=== PATIENT | female | born 1955 | race Caucasian/White ===

== ENCOUNTER 2022-06-20 06:45 | Inpatient (IN) | payer MEDICARE, BC, SELFPAY ==
--- NOTE | ~2022-06-20 | CT_ITS ---
EXAMINATION: CT HEAD WITHOUT CONTRAST CLINICAL INFORMATION: Altered mental status COMPARISON: None available. TECHNIQUE: Contiguous axial imaging was performed from the skull base to vertex without intravenous administration of contrast. This CT examination was performed using dose optimization techniques as appropriate, variously including the following: *Automated exposure control *Adjustment of mA and/or kV according to patient size (this includes techniques or standardized protocols for targeted exams where dose is matched to indication/reason for exam; i.e. extremities or head) *Use of iterative reconstruction technique DLP: 534 mGy-cm FINDINGS: There is no evidence of acute intracranial hemorrhage or territorial infarction. No abnormal mass effect or midline shift is appreciated. Veronica-white differentiation is well preserved. No extra-axial fluid collections. The ventricular system and cortical sulci are normal in size. The osseous structures and soft tissues are normal. The visualized paranasal sinuses and mastoid air cells are well aerated. CT/CT head/brain wo IV con IMPRESSION: No acute intracranial pathology.
--- NOTE | 2022-06-20 06:54 | ED.GENADULT ---
HPI - General Adult General Chief complaint: Psychiatric Symptoms <EMILY Tate - Last Filed: 06/20/22 13:23> Stated complaint: confusion <EMILY Tate - Last Filed: 06/20/22 13:23> Time Seen by Provider: 06/20/22 06:54 <EMILY Tate - Last Filed: 06/20/22 13:23> Source: patient <EMILY Tate Last Filed: 06/20/22 13:23> Mode of arrival: ambulatory <EMILY Tate Last Filed: 06/20/22 13:23> Limitations: altered mental status <EMILY Tate Last Filed: 06/20/22 13:23> History of Present Illness HPI narrative: Patient is a 67 year old assigned female at with no reported medical history presenting to the emergency department today requesting assistance with transportation to the [facility]. Patient states that she is traveling by foot from [facility] to [place]. Patient states that she is trying to find her family and friends. Patient states that specific shaped signs she knows to stay away from but traveling has gotten harder with the rain and the darkness. Patient denies any dizziness, lightheadedness, abdominal pain, nausea, vomiting, fever, chills, blurry vision, double vision, loss of vision, chest pain, difficulty breathing, shortness of breath, back pain, night sweats, pain with urination, increased urinary frequency, increased urinary urgency, blood in her urine or stool, syncope or a near syncopal episode, recent trauma or falls, bowel incontinence, bladder incontinence, bowel retention, bladder retention, or any other complaints at this time. <EMILY Tate - Last Filed: 06/20/22 13:23> Related Data Allergies/adverse reactions: Allergies Allergy/AdvReac Type Severity Reaction Status Date / Time Unable to Assess Allergy Verified 06/20/22 06:55 <EMILY Tate - Last Filed: 06/20/22 13:23> Review of Systems Constitutional: Constitutional: Reports no additional constitutional complaints, Denies chills, Denies fever(s) and Denies night sweats <EMILY Tate Last Filed: 06/20/22 13:23> Eyes: Eyes: Reports no additional eye complaints, Denies blurry vision, Denies change in vision, Denies diplopia, Denies eye discharge, Denies loss of vision and Denies eye pain <EMILY Tate - Last Filed: 06/20/22 13:23> ENT: Denies dizziness <EMILY Tate - Last Filed: 06/20/22 13:23> Cardiovascular: Cardiovascular: Reports no additional cardiovascular complaints, Denies chest pain, Denies lightheadedness, Denies Loss of Consciousness and Denies dyspnea <EMILY Tate - Last Filed: 06/20/22 13:23> Respiratory: Respiratory: Reports no additional respiratory complaints and Denies dyspnea <EMILY Tate - Last Filed: 06/20/22 13:23> Gastrointestinal: Gastrointestinal: Reports no additional gastrointestinal complaints, Denies abdominal pain, Denies melena, Denies hematochezia, Denies change in bowel habits and Denies change in stool character <EMILY Tate - Last Filed: 06/20/22 13:23> Genitourinary: Genitourinary: Denies hematuria, Denies urinary frequency, Denies dysuria, Denies urinary incontinence, Denies urinary hesitancy and Denies urinary urgency <EMILY Tate - Last Filed: 06/20/22 13:23> Musculoskeletal: Musculoskeletal: Reports no additional musculoskeletal complaints, Denies numbness and Denies tingling <EMILY Tate - Last Filed: 06/20/22 13:23> Neurologic: Denies dizziness, Denies loss of vision, Denies numbness and Denies tingling <EMILY Tate - Last Filed: 06/20/22 13:23> Psychiatric: Psychiatric: Reports no additional psychiatric complaints <EMILY Tate - Last Filed: 06/20/22 13:23> Endocrine: Endocrine: Reports no additional endocrine complaints <EMILY Tate - Last Filed: 06/20/22 13:23> Hematologic/Lymphatic: Hematologic/Lymphatic: Reports no additional hematologic/lymphatic complaints <EMILY Tate - Last Filed: 06/20/22 13:23> Allergic/Immunologic: Allergic/Immunologic: Reports no additional allergic/immunologic complaints <EMILY Tate - Last Filed: 06/20/22 13:23> [facility] Past Medical History Attestation statement: The following information was validated with the patient. <EMILY Tate - Last Filed: 06/20/22 13:23> Source: old records reviewed and nursing notes reviewed <EMILY Tate - Last Filed: 06/20/22 13:23> Social History Social History: Social History Smoked in Last 30 Days: No Advance Directives: No Advance Directives Information Provided: No Healthcare Proxy: No Guardian: No <EMILY Tate - Last Filed: 06/20/22 13:23> Physical Exam ED Vital Signs: Vital Signs - 24 hr 06/20/22 07:42 06/20/22 10:07 06/20/22 13:44 Temperature 98.4 F Pulse Rate 88 76 78 Respiratory Rate 16 16 16 Blood Pressure 126/67 111/56 L 133/72 Pulse Oximetry 98 99 96 Oxygen Delivery Method Room Air Room Air Room Air 06/20/22 17:17 06/20/22 19:13 06/20/22 22:06 Temperature 97.7 F 98.2 F 98.5 F Pulse Rate 73 79 70 Respiratory Rate 14 16 16 Blood Pressure 116/52 L 124/57 L 112/53 L Pulse Oximetry 94 97 95 Oxygen Delivery Method Room Air Room Air Room Air 06/21/22 02:18 06/21/22 05:29 Temperature 98.0 F 97.6 F Pulse Rate 65 66 Respiratory Rate 16 16 Blood Pressure 112/60 108/57 L Pulse Oximetry 97 99 Oxygen Delivery Method Room Air Room Air BMI result Body Mass Index 24.7 <EMILY Tate - Last Filed: 06/20/22 13:23> Vital Signs - 24 hr 06/20/22 07:42 06/20/22 10:07 06/20/22 13:44 Temperature 98.4 F Pulse Rate 88 76 78 Respiratory Rate 16 16 16 Blood Pressure 126/67 111/56 L 133/72 Pulse Oximetry 98 99 96 Oxygen Delivery Method Room Air Room Air Room Air 06/20/22 17:17 06/20/22 19:13 06/20/22 22:06 Temperature 97.7 F 98.2 F 98.5 F Pulse Rate 73 79 70 Respiratory Rate 14 16 16 Blood Pressure 116/52 L 124/57 L 112/53 L Pulse Oximetry 94 97 95 Oxygen Delivery Method Room Air Room Air Room Air 06/21/22 02:18 06/21/22 05:29 Temperature 98.0 F 97.6 F Pulse Rate 65 66 Respiratory Rate 16 16 Blood Pressure 112/60 108/57 L Pulse Oximetry 97 99 Oxygen Delivery Method Room Air Room Air BMI result Body Mass Index 24.7 <EMILY Woodson - Last Filed: 06/21/22 07:08> Const General: cooperative, no acute distress, alert and awake <EMILY Tate - Last Filed: 06/20/22 13:23> Nutritional Appearance: well nourished <EMILY Tate - Last Filed: 06/20/22 13:23> Orientation/consciousness: patient oriented x3 <EMILY Tate - Last Filed: 06/20/22 13:23> Limitations: no limitations <EMILY Tate - Last Filed: 06/20/22 13:23> HENMT Head: Yes normal to inspection and Yes atraumatic <EMILY Tate - Last Filed: 06/20/22 13:23> Ears: hearing grossly normal bilaterally and external ears normal <EMILY Tate - Last Filed: 06/20/22 13:23> General nose exam: Normal external nose present, no nasal discharge noted and no epistaxis <EMILY Tate - Last Filed: 06/20/22 13:23> Face and sinus: Yes normal facial exam, No abrasion and No laceration <EMILY Tate - Last Filed: 06/20/22 13:23> Mouth: Normal oral and palatal mucosa present, no drooling and no muffled voice <EMILY Tate - Last Filed: 06/20/22 13:23> Eyes General: appearance normal, both eyes and all related structures <EMILY Tate - Last Filed: 06/20/22 13:23> Periorbital: periorbital findings normal <EMILY Tate - Last Filed: 06/20/22 13:23> Eyelids: Yes eyelids normal <EMILY Tate - Last Filed: 06/20/22 13:23> Conjunctivae: conjunctivae normal <Elizabeth Fuentes PA - Last Filed: 06/20/22 13:23> Pupils: Equal, round and reactive pupils present <Elizabeth Fuentes PA - Last Filed: 06/20/22 13:23> EOM: EOMs intact bilaterally <Elizabeth Fuentes PA - Last Filed: 06/20/22 13:23> Neck Neck: Yes normal visual inspection, Yes full ROM and Yes no lymphadenopathy <Elizabeth Fuentes PA - Last Filed: 06/20/22 13:23> Chest Chest palpation & inspection: normal inspection of the chest <Elizabeth Fuentes PA - Last Filed: 06/20/22 13:23> Resp Effort & Inspection: normal respiratory effort and able to speak in complete sentences <Elizabeth Fuentes PA - Last Filed: 06/20/22 13:23> GI Inspection: Yes normal to inspection <Elizabeth Fuentes PA - Last Filed: 06/20/22 13:23> Neuro General: patient oriented x3 and moves all extremities <Elizabeth Fuentes PA - Last Filed: 06/20/22 13:23> Cranial nerves: Yes Equal, round and reactive pupils present <Elizabeth Fuentes PA - Last Filed: 06/20/22 13:23> Cognition (Neuro): normal cognition <Elizabeth Fuentes PA - Last Filed: 06/20/22 13:23> Motor exam (neuro): 5/5 motor strength present throughout <Elizabeth Fuentes PA - Last Filed: 06/20/22 13:23> Sensory Exam: Normal double simultaneous stimulation for sensation <Elizabeth Fuentes PA - Last Filed: 06/20/22 13:23> Coordination: [id number] test normal <Elizabeth Fuentes PA - Last Filed: 06/20/22 13:23> Extrem General: Yes normal to inspection, Yes full ROM and Yes capillary refill normal <Elizabeth Fuentes PA - Last Filed: 06/20/22 13:23> Psych Speech and movement: Normal speech and movement present <Elizabeth Fuentes PA - Last Filed: 06/20/22 13:23> Affect: normal affect <Elizabeth Fuentes PA - Last Filed: 06/20/22 13:23> Attitude: Guarded attititude/behavior present <EMILY Tate Last Filed: 06/20/22 13:23> Thought process: Illogical thought process present <EMILY Tate Last Filed: 06/20/22 13:23> Thought content: delusions <EMILY Tate Last Filed: 06/20/22 13:23> Insight: Limited insight present (Psych) <EMILY Tate - Last Filed: 06/20/22 13:23> Course Course Course Narrative: 06/21/22--190--position observation continued. Vital signs stable, no complaints overnight. Labs & imaging reviewed. Patient remains inpatient bed search. Section 12 <EMILY Woodson - Last Filed: 06/21/22 07:08> Medical Decision Making Medical Decision Making [facility] Narrative: Patient is a 67 year old assigned female at with no reported medical history presenting to the emergency department today in an acute psychotic episode. Patient's physical exam showed a paranoid individual. Patient's blood work was unremarkable. Patient's urine showed no acute process. Patient's EKG was unremarkable. Patient's head CT showed no acute process. CARE Team evaluated the patient and recommended in patient psychiatric care. Section [address] I explained my physical exam findings as well as all test results to the patient. I answered all questions asked by the patient. Patient to remain in the department while in patient psychiatric care is being found. <EMILY Tate - Last Filed: 06/20/22 13:23> Differential Diagnosis Differential Diagnoses: The differential diagnosis associated with the presentation includes <EMILY Tate Last Filed: 06/20/22 13:23> psychosis <EMILY Tate Last Filed: 06/20/22 13:23> Consult Healthcare Provider Management of the patient was discussed with: Behavioral Health Provider (as noted in the MDM portion of this chart) <EMILY Tate Last Filed: 06/20/22 13:23> Lab Data [facility] Lab Attestation statement: I reviewed the patient's lab results. <EMILY Tate Last Filed: 06/20/22 13:23> Result Diagrams: 06/20/22 07:20 06/20/22 07:20 <EMILY Tate - Last Filed: 06/20/22 13:23> Labs: Lab Results 06/20/22 06/20/22 06/20/22 Range/Units 07:20 07:20 10:18 WBC 6.6 (4.8-10.8) X10*3/uL RBC 3.84 L (4.20-5.50) X10*6/uL Hgb 12.1 (12.0-16.0) g/dl Hct 36.7 L (37.0-47.0) % MCV 95.6 (80.0-98.0) fL MCH 31.5 (27.0-33.0) pg MCHC 33.0 (31.0-35.0) g/dl RDW 13.9 (11.0-16.0) % Plt Count 344 (160-400) X10*3/uL MPV 9.8 (9.4-12.3) fL Immature Gran % (Auto) 0.3 (0.0-0.4) % Neut % (Auto) 61.9 (45-73) % Lymph % (Auto) 26.1 (20-40) % Reynolds % (Auto) 9.8 (2-11) % Eos % (Auto) 1.1 (0-4) % Baso % (Auto) 0.8 (0-2) % Lymph # (Auto) 1.7 (1.2-4.9) X10*3/uL Reynolds # (Auto) 0.6 (0.1-1.2) X10*3/uL Eos # (Auto) 0.1 (0.0-0.4) X10*3/uL Baso # (Auto) 0.1 (0.0-0.2) X10*3/uL Abs Immat Gran (auto) 0.02 (0.00-0.03) X10*3/uL Absolute Neuts (auto) 4.1 (2.0-8.3) x10*3/uL Absolute Nucleated RBC 0.000 (0.0-0.012) X10*3/uL Nucleated RBC % (auto) 0.0 (0.0-0.2) /100WBC Sodium 144 (135-145) mmol/L Potassium 4.1 (3.3-5.1) mmol/L Chloride 109 H (96-108) mmol/L Carbon Dioxide 30 H (22-29) mmol/L Anion Gap 9 L (12-20) BUN 17 H (9-16) mg/dL Creatinine 0.69 (0.5-1.4) mg/dL Estim Creat Clear Calc 69.0 Estimated GFR > 60 Random Glucose 87 (60-115) mg/dL Calcium 9.6 (8.4-10.2) mg/dL Total Bilirubin 0.6 (0.0-1.0) mg/dL AST 17 (5-31) U/L ALT 20 (0-31) U/L Alkaline Phosphatase 81 (39-117) U/L Total Protein 7.0 (6.5-8.0) g/dL Albumin 4.3 (3.5-5.0) g/dL Urine Color Yellow Urine Appearance Clear Urine pH 7.5 (5.0-9.0) Ur Specific [place] 1.020 (1.005-1.025) Urine Protein Negative (Neg-Trace) mg/dL Urine Glucose (UA) Negative (Negative) mg/dL Urine Ketones Negative (Negative) mg/dL Urine Blood Negative (Negative) Urine Nitrite Negative (Negative) Ur Leukocyte Esterase Negative (Negative) Salicylates < 5.0 L (15-30) mg/dL Urine Opiates Screen (Not Detect) Urine Fentanyl Screen (Not Detect) Acetaminophen < 17 (<30) mcg/mL Ur Barbiturates Screen (Not Detect) Ur Phencyclidine Scrn (Not Detect) Ur Amphetamines Screen (Not Detect) U Benzodiazepines Scrn (Not Detect) Urine Cocaine Screen (Not Detect) U Marijuana (THC) Screen (Not Detect) Ethyl Alcohol < 10 mg/dL 06/20/22 Range/Units 10:18 WBC (4.8-10.8) X10*3/uL RBC (4.20-5.50) X10*6/uL Hgb (12.0-16.0) g/dl Hct (37.0-47.0) % MCV (80.0-98.0) fL MCH (27.0-33.0) pg MCHC (31.0-35.0) g/dl RDW (11.0-16.0) % Plt Count (160-400) X10*3/uL MPV (9.4-12.3) fL Immature Gran % (Auto) (0.0-0.4) % Neut % (Auto) (45-73) % Lymph % (Auto) (20-40) % Reynolds % (Auto) (2-11) % Eos % (Auto) (0-4) % Baso % (Auto) (0-2) % Lymph # (Auto) (1.2-4.9) X10*3/uL Reynolds # (Auto) (0.1-1.2) X10*3/uL Eos # (Auto) (0.0-0.4) X10*3/uL Baso # (Auto) (0.0-0.2) X10*3/uL Abs Immat Gran (auto) (0.00-0.03) X10*3/uL Absolute Neuts (auto) (2.0-8.3) x10*3/uL Absolute Nucleated RBC (0.0-0.012) X10*3/uL Nucleated RBC % (auto) (0.0-0.2) /100WBC Sodium (135-145) mmol/L Potassium (3.3-5.1) mmol/L Chloride (96-108) mmol/L Carbon Dioxide (22-29) mmol/L Anion Gap (12-20) BUN (9-16) mg/dL Creatinine (0.5-1.4) mg/dL Estim Creat Clear Calc Estimated GFR Random Glucose (60-115) mg/dL Calcium (8.4-10.2) mg/dL Total Bilirubin (0.0-1.0) mg/dL AST (5-31) U/L ALT (0-31) U/L Alkaline Phosphatase (39-117) U/L Total Protein (6.5-8.0) g/dL Albumin (3.5-5.0) g/dL Urine Color Urine Appearance Urine pH (5.0-9.0) Ur Specific [place] (1.005-1.025) Urine Protein (Neg-Trace) mg/dL Urine Glucose (UA) (Negative) mg/dL Urine Ketones (Negative) mg/dL Urine Blood (Negative) Urine Nitrite (Negative) Ur Leukocyte Esterase (Negative) Salicylates (15-30) mg/dL Urine Opiates Screen Not Detected (Not Detect) Urine Fentanyl Screen Not Detected (Not Detect) Acetaminophen (<30) mcg/mL Ur Barbiturates Screen Not Detected (Not Detect) Ur Phencyclidine Scrn Not Detected (Not Detect) Ur Amphetamines Screen Not Detected (Not Detect) U Benzodiazepines Scrn Not Detected (Not Detect) Urine Cocaine Screen Not Detected (Not Detect) U Marijuana (THC) Screen Not Detected (Not Detect) Ethyl Alcohol mg/dL <EMILY Tate - Last Filed: 06/20/22 13:23> Lab Results 06/20/22 06/20/22 06/20/22 Range/Units 07:20 07:20 10:18 WBC 6.6 (4.8-10.8) X10*3/uL RBC 3.84 L (4.20-5.50) X10*6/uL Hgb 12.1 (12.0-16.0) g/dl Hct 36.7 L (37.0-47.0) % MCV 95.6 (80.0-98.0) fL MCH 31.5 (27.0-33.0) pg MCHC 33.0 (31.0-35.0) g/dl RDW 13.9 (11.0-16.0) % Plt Count 344 (160-400) X10*3/uL MPV 9.8 (9.4-12.3) fL Immature Gran % (Auto) 0.3 (0.0-0.4) % Neut % (Auto) 61.9 (45-73) % Lymph % (Auto) 26.1 (20-40) % Reynolds % (Auto) 9.8 (2-11) % Eos % (Auto) 1.1 (0-4) % Baso % (Auto) 0.8 (0-2) % Lymph # (Auto) 1.7 (1.2-4.9) X10*3/uL Reynolds # (Auto) 0.6 (0.1-1.2) X10*3/uL Eos # (Auto) 0.1 (0.0-0.4) X10*3/uL Baso # (Auto) 0.1 (0.0-0.2) X10*3/uL Abs Immat Gran (auto) 0.02 (0.00-0.03) X10*3/uL Absolute Neuts (auto) 4.1 (2.0-8.3) x10*3/uL Absolute Nucleated RBC 0.000 (0.0-0.012) X10*3/uL Nucleated RBC % (auto) 0.0 (0.0-0.2) /100WBC Sodium 144 (135-145) mmol/L Potassium 4.1 (3.3-5.1) mmol/L Chloride 109 H (96-108) mmol/L Carbon Dioxide 30 H (22-29) mmol/L Anion Gap 9 L (12-20) BUN 17 H (9-16) mg/dL Creatinine 0.69 (0.5-1.4) mg/dL Estim Creat Clear Calc 69.0 Estimated GFR > 60 Random Glucose 87 (60-115) mg/dL Calcium 9.6 (8.4-10.2) mg/dL Total Bilirubin 0.6 (0.0-1.0) mg/dL AST 17 (5-31) U/L ALT 20 (0-31) U/L Alkaline Phosphatase 81 (39-117) U/L Total Protein 7.0 (6.5-8.0) g/dL Albumin 4.3 (3.5-5.0) g/dL Urine Color Yellow Urine Appearance Clear Urine pH 7.5 (5.0-9.0) Ur Specific [place] 1.020 (1.005-1.025) Urine Protein Negative (Neg-Trace) mg/dL Urine Glucose (UA) Negative (Negative) mg/dL Urine Ketones Negative (Negative) mg/dL Urine Blood Negative (Negative) Urine Nitrite Negative (Negative) Ur Leukocyte Esterase Negative (Negative) Salicylates < 5.0 L (15-30) mg/dL Urine Opiates Screen (Not Detect) Urine Fentanyl Screen (Not Detect) Acetaminophen < 17 (<30) mcg/mL Ur Barbiturates Screen (Not Detect) Ur Phencyclidine Scrn (Not Detect) Ur Amphetamines Screen (Not Detect) U Benzodiazepines Scrn (Not Detect) Urine Cocaine Screen (Not Detect) U Marijuana (THC) Screen (Not Detect) Ethyl Alcohol < 10 mg/dL 06/20/22 Range/Units 10:18 WBC (4.8-10.8) X10*3/uL RBC (4.20-5.50) X10*6/uL Hgb (12.0-16.0) g/dl Hct (37.0-47.0) % MCV (80.0-98.0) fL MCH (27.0-33.0) pg MCHC (31.0-35.0) g/dl RDW (11.0-16.0) % Plt Count (160-400) X10*3/uL MPV (9.4-12.3) fL Immature Gran % (Auto) (0.0-0.4) % Neut % (Auto) (45-73) % Lymph % (Auto) (20-40) % Reynolds % (Auto) (2-11) % Eos % (Auto) (0-4) % Baso % (Auto) (0-2) % Lymph # (Auto) (1.2-4.9) X10*3/uL Reynolds # (Auto) (0.1-1.2) X10*3/uL Eos # (Auto) (0.0-0.4) X10*3/uL Baso # (Auto) (0.0-0.2) X10*3/uL Abs Immat Gran (auto) (0.00-0.03) X10*3/uL Absolute Neuts (auto) (2.0-8.3) x10*3/uL Absolute Nucleated RBC (0.0-0.012) X10*3/uL Nucleated RBC % (auto) (0.0-0.2) /100WBC Sodium (135-145) mmol/L Potassium (3.3-5.1) mmol/L Chloride (96-108) mmol/L Carbon Dioxide (22-29) mmol/L Anion Gap (12-20) BUN (9-16) mg/dL Creatinine (0.5-1.4) mg/dL Estim Creat Clear Calc Estimated GFR Random Glucose (60-115) mg/dL Calcium (8.4-10.2) mg/dL Total Bilirubin (0.0-1.0) mg/dL AST (5-31) U/L ALT (0-31) U/L Alkaline Phosphatase (39-117) U/L Total Protein (6.5-8.0) g/dL Albumin (3.5-5.0) g/dL Urine Color Urine Appearance Urine pH (5.0-9.0) Ur Specific [place] (1.005-1.025) Urine Protein (Neg-Trace) mg/dL Urine Glucose (UA) (Negative) mg/dL Urine Ketones (Negative) mg/dL Urine Blood (Negative) Urine Nitrite (Negative) Ur Leukocyte Esterase (Negative) Salicylates (15-30) mg/dL Urine Opiates Screen Not Detected (Not Detect) Urine Fentanyl Screen Not Detected (Not Detect) Acetaminophen (<30) mcg/mL Ur Barbiturates Screen Not Detected (Not Detect) Ur Phencyclidine Scrn Not Detected (Not Detect) Ur Amphetamines Screen Not Detected (Not Detect) U Benzodiazepines Scrn Not Detected (Not Detect) Urine Cocaine Screen Not Detected (Not Detect) U Marijuana (THC) Screen Not Detected (Not Detect) Ethyl Alcohol mg/dL <EMILY Woodson - Last Filed: 06/21/22 07:08> Independent Interpretation I performed an independent interpretation of an: EKG <EMILY Tate - Last Filed: 06/20/22 13:23> Interpretation: Vent. Rate: 077 BPM ? ? Atrial Rate: 077 BPM P-R Int: 174 ms? QRS Dur: 108 ms QT Int: 394 ms ? ? ? P-R-T Axes: 073 047 023 degrees QTc Int: 445 ms ? Normal sinus rhythm Incomplete right bundle branch block Borderline ECG No previous ECGs available DD/ [id number] <EMILY Tate - Last Filed: 06/20/22 13:23> Radiology Impression Radiologist Impression: My interpretation is in agreement with the radiologist's impression of this imaging study. EXAMINATION: CT HEAD WITHOUT CONTRAST CLINICAL INFORMATION: Altered mental status? COMPARISON: None available. TECHNIQUE: Contiguous axial imaging was performed from the skull base to vertex without intravenous administration of contrast. This CT examination was performed using dose optimization techniques as appropriate, variously including the following: *Automated exposure control *Adjustment of mA and/or kV according to patient size (this includes techniques or standardized protocols for targeted exams where dose is matched to indication/reason for exam; i.e. extremities or head) *Use of iterative reconstruction technique DLP: 534 mGy-cm FINDINGS: There is no evidence of acute intracranial hemorrhage or territorial infarction.? No abnormal mass effect or midline shift is appreciated. Veronica-white differentiation is well preserved.? No extra-axial fluid collections.? The ventricular system and cortical sulci are normal in size.? The osseous structures and soft tissues are normal.? The visualized paranasal sinuses and mastoid air cells are well aerated.? CT/CT head/brain wo IV con IMPRESSION: No acute intracranial pathology. ? Dictated By: David Aquino MD Signed By: Electronically signed by David Aquino MD 06/20/22 0936 <EMILY Tate - Last Filed: 06/20/22 13:23> Critical Care Time Critical Care Time Critical Care Time: Yes <EMILY Tate - Last Filed: 06/20/22 13:23> Total Critical Care Time: 30 <EMILY Tate Last Filed: 06/20/22 13:23> Attestation: I spent 30 minutes of Critical Care Time with this patient. This does not include time spent on separately reported billable procedures. <EMILY Tate Last Filed: 06/20/22 13:23> Discharge Plan Discharge Clinical Impression: Acute psychosis <EMILY Tate - Last Filed: 06/20/22 13:23> Patient Disposition: Still a Patient <EMILY Tate - Last Filed: 06/20/22 13:23> Interventions: Williamson-Suicide Risk Severity Scale Last Done: 06/21/22 06:34 <EMILY Tate Last Filed: 06/20/22 13:23>
--- NOTE | 2022-06-20 06:55 | ECG_ITS ---
Test Reason : CONFUSION Blood Pressure : / mmHG Vent. Rate : 077 BPM Atrial Rate : 077 BPM P-R Int : 174 ms QRS Dur : 108 ms QT Int : 394 ms P-R-T Axes : 073 047 023 degrees QTc Int : 445 ms Normal sinus rhythm Incomplete right bundle branch block Borderline ECG No previous ECGs available Referred By: Elizabeth Fuentes Electronically Signed By:Cam Dewitt
[2022-06-20 07:24] LABS: MANUAL DIFF FLAG NO
[2022-06-20 07:26] LABS: Basophils Absolute Auto 0.1 X10*3/uL (0.0-0.2); Basophils Percent Auto 0.8 % (0-2); Eosinophils Absolute Auto 0.1 X10*3/uL (0.0-0.4); Eosinophils Percent Auto 1.1 % (0-4); Hematocrit 36.7 % (37.0-47.0); Hemoglobin 12.1 g/dl (12.0-16.0); Imm Gran Abs Auto 0.02 X10*3/uL (0.00-0.03); Imm Gran Pct Auto 0.3 % (0.0-0.4); Lymphocytes Absolute Auto 1.7 X10*3/uL (1.2-4.9); Lymphocytes Percent Auto 26.1 % (20-40); Mean Corpuscular Hemoglobin 31.5 pg (27.0-33.0); Mean Corpuscular Volume 95.6 fL (80.0-98.0); Mean Platelet Volume 9.8 fL (9.4-12.3); Monocytes Absolute Auto 0.6 X10*3/uL (0.1-1.2); Monocytes Percent Auto 9.8 % (2-11); Neutrophils Absolute Auto 4.1 x10*3/uL (2.0-8.3); Neutrophils Percent Auto 61.9 % (45-73); Platelet Count 344 X10*3/uL (160-400); Red Blood Count 3.84 X10*6/uL (4.20-5.50); Red Cell Distribution Width 13.9 % (11.0-16.0); White Blood Count 6.6 X10*3/uL (4.8-10.8)
[2022-06-20 07:42] VITALS: BP 126/67; PULSE 88; RESP 16; TEMP 36.9; O2SAT 98; BMI 24.7
[2022-06-20 07:51] LABS: Alanine Aminotransferase 20 U/L (0-31); Albumin Level 4.3 g/dL (3.5-5.0); Alkaline Phosphatase 81 U/L (39-117); Anion Gap 9 (12-20); Aspartate Amino Transferase 17 U/L (5-31); Bilirubin Total 0.6 mg/dL (0.0-1.0); Blood Urea Nitrogen 17 mg/dL (9-16); Calcium 9.6 mg/dL (8.4-10.2); Carbon Dioxide 30 mmol/L (22-29); Chloride 109 mmol/L (96-108); Estimated Glomerular Filt Rate > 60; Ethanol < 10 mg/dL; Glucose Random 87 mg/dL (60-115); Potassium 4.1 mmol/L (3.3-5.1); Sodium 144 mmol/L (135-145)
[2022-06-20 08:13] LABS: Acetaminophen LAB < 17 mcg/mL (<30); Salicylate < 5.0 mg/dL (15-30)
[2022-06-20 10:07] VITALS: BP 111/56; PULSE 76; RESP 16; O2SAT 99
[2022-06-20 10:28] LABS: Appearance Urine Clear; Color Urine Yellow; Glucose Urine UA Negative (Negative); Leukocyte Esterase Urine Negative (Negative); Nitrite Urine Negative (Negative); PH 7.5 (5.0-9.0); Urine Blood Negative (Negative); Urine Ketones Negative (Negative); Urine Protein Negative (Neg-Trace)
[2022-06-20 10:44] LABS: Fentanyl, urine Not Detected (Not Detect)
[2022-06-20 11:13] LABS: Amphetamine Screen Urine Not Detected (Not Detect); Barbiturates, Urine Not Detected (Not Detect); Benzodiazepines Screen Urine Not Detected (Not Detect); Cannabinoid Screen Urine Not Detected (Not Detect); Cocaine Screen Urine Not Detected (Not Detect); Opiate Screen Urine Not Detected (Not Detect); Phencyclidine Screen Urine Not Detected (Not Detect)
[2022-06-20 13:44] VITALS: BP 133/72; PULSE 78; RESP 16; O2SAT 96
--- NOTE | 2022-06-20 14:32 | PC.NURSE ---
Plan for inpatient psychiatric admission
--- NOTE | 2022-06-20 15:05 | MHC.CARE ---
patient is an inpatient loc bed search.
[2022-06-20 17:17] VITALS: BP 116/52; PULSE 73; RESP 14; TEMP 36.5; O2SAT 94
--- NOTE | 2022-06-20 17:18 | PC.NURSE ---
Speaking to the corner of the room with no one present in the room. Calm and cooperative, offering no complaints.
[2022-06-20 19:13] VITALS: BP 124/57; PULSE 79; RESP 16; TEMP 36.8; O2SAT 97
[2022-06-20 22:06] VITALS: BP 112/53; PULSE 70; RESP 16; TEMP 36.9; O2SAT 95
--- NOTE | 2022-06-20 22:22 | PC.NURSE ---
pt sleeping positioned on back. rise and fall of chest noted
[2022-06-21 02:18] VITALS: BP 112/60; PULSE 65; RESP 16; TEMP 36.7; O2SAT 97
[2022-06-21 05:29] VITALS: BP 108/57; PULSE 66; RESP 16; TEMP 36.4; O2SAT 99
--- NOTE | 2022-06-21 05:31 | MHC.EDTECH ---
pt had a good night no issues vitals were taken and up to date
--- NOTE | 2022-06-21 06:36 | PC.NURSE ---
pt awake speaking to this rn. pt denies pain at this time. pt denies SI and HI at this time. pt calm and cooperative, resting on stretcher comfortably. no new needs at this time
[2022-06-21 09:01] LABS: COVID-19 Test Negative (Negative); IDNOW Serial# 08D9AD1C
--- NOTE | 2022-06-21 09:59 | PHA.MEDREC ---
Pharmacy Consult ? Medication Reconciliation Pharmacy has completed the medication reconciliation.
--- NOTE | 2022-06-21 13:15 | MHC.CARE ---
CARE Team spoke with Sindy from [facility] [phone] who informed t/w to complete online authorization form and submit via fax with attached clinicals for inpt admission
[2022-06-21 18:00] VITALS: BP 131/58; PULSE 89; TEMP 36.6; O2SAT 95
--- NOTE | 2022-06-21 23:16 | PC.ADMIT ---
Patient is a 67 year old Iraqi speaking female, admitted as a CV admission to at 177 and placed on 15 minute safety chcks. Patient was medically cleared in the [facility], evaluatd by the CARE team and deeme in need of IPLOC d/t confusion, traveling from [place], [place] with only 60 cents. Patient has never alex a patient at [facility] for any reaso. She did admit tto one inpatient psychiatric hospitalization for observation , per patient report
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
[2022-06-22 06:00] VITALS: BP 116/60; PULSE 77; RESP 16
[2022-06-22 07:59] LABS: Cholesterol 181 mg/dL; HDL Cholesterol 44 mg/dL; LDL Cholesterol Calculated 117 mg/dl; Magnesium 2.1 mg/dL (1.6-2.6); Triglycerides 104 mg/dL
[2022-06-22 08:17] LABS: Estimated Average Glucose 91 mg/dL; Hemoglobin A1c % 4.8 %
[2022-06-22 08:31] LABS: Folate 9.8 ng/mL (> or = 4.0); Free T4 (Free Thyroxine) 0.84 ng/dL (0.71-1.85); Thyroid Stimulating Hormone 1.29 uIU/mL (0.32-4.0); Vitamin B12 300 pg/mL (200-900)
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
[2022-06-22 17:13] VITALS: BP 118/67; PULSE 99; TEMP 36.7; O2SAT 96
[2022-06-23 06:00] VITALS: BP 107/53; PULSE 83; RESP 18; TEMP 36.7; O2SAT 95
--- NOTE | 2022-06-23 08:52 | P.PNPSI_ITS ---
Subjective Subjective Date of Service: 06/23/22 Reason For Visit: confusion Interim History: Met with patient; discussed with team Patient remains with same presentation. Patient has been in good behavioral and impulse control; sleeping and eating appropriately She remains with paranoid delusions however she is also logical, organized in speech and behavior. Medical Receptionist Medical Assistant again broached the topic of medications, saying that things might be easier for her if she was willing to try medication however patient reiterates she does not want medications and does not feel the need for them. Medical Receptionist Medical Assistant again broached homelessness and patient again explained how she manages it, again revealing that she is quite savvy, organized; she understands the risks and dangers and appropriately describes how she navigates them. Patient asks for help knowing the system of shelters and what is available for her. Patient reiterates this is why she came to the hospital, for help with housing and she does not want to go back to [place]. Otherwise she continues to deny any psychiatric symptoms and agrees with plan for discharge. Mental Status Exam Mental Status Exam Narrative: Pt is alert and oriented; behavior is cooperative, friendly and calm; patient is not in distress; dressed in hospital attire with unkempt hair but adequate hygiene; mood is described as alright and affect congruent; eye contact appropriate; Speech is a little verbose but otherwise normal rate, volume and prosody and not pressured; no psychomotor agitation/retardation present; thought process is goal directed and though can be circumstantial, mostly logical; Thought content is on paranoid delusions and effort to find housing; denies any SI/HI. Intermittent AH; Patients insight and judgment appear impaired but adequate. Diagnostics Vital Signs (24Hr): Vital Signs - 24 hr 06/22/22 17:13 06/23/22 06:00 Temperature 98.1 F 98.1 F Pulse Rate 99 83 Respiratory Rate 18 Blood Pressure 118/67 107/53 L Pulse Oximetry 96 95 Oxygen Delivery Method Room Air Room Air BMI result Body Mass Index 24.7 Labs 06/20/22 07:20 06/20/22 07:20 Labs: Laboratory Results - last 48 hr 06/21/22 06/22/22 06/22/22 08:31 07:23 07:23 Estimat Average Glucose 91 Hemoglobin A1c % 4.8 Magnesium 2.1 Triglycerides 104 Cholesterol 181 LDL Cholesterol, Calc 117 HDL Cholesterol 44 Vitamin B12 300 Folate 9.8 TSH 1.29 Free T4 0.84 COVID-19 ([facility]) Negative COVID-19 Clin Com See Note Imaging Radiology Impressions: ITS Impressions Head CT 06/20/22 09:02 IMPRESSION: No acute intracranial pathology. Medications Medications Current Medications Acetaminophen (Acetaminophen 325 Mg Tablet) 650 mg PO Q6H PRN PRN Reason: Headache/Pain Mild Scale (1-3) Al Hydroxide/Mg Hydroxide (Magnesium Hydrox/Alum Hydrox 30 Ml Oral.Susp) 30 ml PO Q6H PRN PRN Reason: Heartburn/Nausea Haloperidol (Haloperidol 1 Mg Tablet) 1 mg PO BID PRN PRN Reason: 30 unit/kg - Heparin Protocol Hydroxyzine HCl (Hydroxyzine Hcl 25 Mg Tablet) 25 mg PO Q6H PRN PRN Reason: Anxiety Magnesium Hydroxide (Milk Of Magnesia 30 Ml Oral.Susp) 30 ml PO DAILY PRN PRN Reason: Constipation Trazodone HCl (Trazodone Hcl 25 Mg Halftab) 25 mg PO BEDTIME PRN PRN Reason: Insomnia Allergies Allergies Allergy/AdvReac Type Severity Reaction Status Date / Time Unable to Assess Allergy Verified 06/20/22 06:55 Assessment & Plan Assessment & Plan (1) Schizophrenia: Status: Acute Code(s): F20.9 - Schizophrenia, unspecified Plan Pt is a 67 yo female with hx of psychotic illness and chronic paranoid delusions, AH who self-presents asking for transportation/housing in face of not on medications and homelessness having traveled from [place] to [place]. -patient meets criteria for schizophrenia as she has chronic paranoid delusions and auditory hallucinations -that said she has survived on her own without any medications and if her history giving is reliable, with almost no psychiatric hospitalizations -despite paranoid delusions, patient describes how she survives living on the streets and is clearly capable, figuring out whom to trust and ask questions, whom to avoid, how to get food, water and intermittent half-way. -patient has no insight at all and does not want medications, though she did not fully rule it out. She has no support and there does not appear to be anyone from home to get collateral. -will admit for observation however so far it seems that patient is able to take care of herself in the community despite her psychotic illness 5/3Patient remains with same presentation. She remains with paranoid delusions however she is also logical, organized in speech and behavior. Medical Receptionist Medical Assistant again broached the topic of medications, saying that things might be easier for her if she was willing to try medication however patient reiterates she does not want medications and does not feel the need for them. Medical Receptionist Medical Assistant again broached homelessness and patient again explained how she manages it, again revealing t hat she is quite savvy, organized; she understands the risks and dangers and appropriately describes how she navigates them. Patient asks for help knowing the system of shelters and what is available for her. Patient reiterates this is why she came to the hospital, for help with housing and she does not want to go back to [place]. Otherwise she continues to deny any psychiatric symptoms and agrees with plan for discharge. While patient presents with psychotic illness and gives a history indicating chronic schizophrenia, she does not meet criteria for involuntary commitment. Despite delusions, she is organized in behavior and speech and has demonstrated good behavioral and impulse control since coming to the hospital. Medical Receptionist Medical Assistant cannot testify that she is unable to care for herself in the community as she has been doing that very thing, on her own, without medication, without help and without any resulting psychiatric admissions. Even this admission was a self presentation, patient looking for help with housing. Patient denies any SI or HI and has no known history of unsafe behaviors to which underwriter solicitation director can ascertain. Patient is homeless by choice and does not want to go back to [place]. As mentioned above, she has been able to navigate homelessness and approaches it in an organized and logical way (patient told how she wanted to buy something with food stamps but was not allowed; so instead, she brought water bottles, emptied the water, got the recycling money and then purchased what she wanted in the [address]st place). Patient does not want any psychiatric treatment and is only asking for help with housing; she is not even asking to stay longer on the unit. Will help patient get some clothes from [employer] in social work explaining half-way options available; but otherwise will proceed with discharge plans. Patient is not in imminent risk for harm to self or others and her request for discharge honored. PLAN: CV Q 15 minute checks ordered low-dose Haldol 1 mg b.i.d. p.r.n. to see if patient is willing Trazodone 25 mg q.h.s. p.r.n. for insomnia Will try to gather collateral though there does not seem to be much available; Head CT reviewed, unremarkable Labs reviewed, grossly WNL Patient educated on: diagnosis and medication risk/benefits Informed Consent: does not understand Reason for continued inpatient stay Substantial Risk for: stable for discharge Time Spent With Patient Time: Total time managing care of this patient today ____ minutes.
--- NOTE | 2022-06-23 15:13 | P.DS_ITS ---
DS: Providers Provider Date of Service: 06/24/22 Date of admission: 06/21/22 14:01 Date of discharge: 06/24/22 Primary care physician: None Physician Attending physician on admission: Frederick Andrews Attending physician on discharge: Frederick Andrews DS: Diagnosis Discharge Diagnosis (1) Schizophrenia: Status: Acute DS: Medications Discharge Medications Home Medications: Home Medications Medication Instructions Recorded Confirmed No Known Home Meds 06/21/22 06/21/22 Mental Status Exam Mental Status Exam Narrative: Pt is alert and oriented; behavior is cooperative, friendly and calm; patient is not in distress; dressed in hospital attire with unkempt hair but adequate hygiene; mood is described as ok and affect congruent; eye contact appropriate; Speech is normal rate, volume and prosody and not pressured; no psychomotor agitation/retardation present; thought process is goal directed and though can be circumstantial, mostly logical; Thought content is on discharge, paranoid delusions and effort to find housing; denies any SI/HI. Intermittent AH; Patients insight and judgment appear impaired but adequate. Data Data Completed and Pending Completed studies during hospitalization [Text1]: 06/20/22 06/20/22 06/20/22 07:20 07:20 10:18 WBC 6.6 RBC 3.84 L Hgb 12.1 Hct 36.7 L MCV 95.6 MCH 31.5 MCHC 33.0 RDW 13.9 Plt Count 344 MPV 9.8 Immature Gran % (Auto) 0.3 Neut % (Auto) 61.9 Lymph % (Auto) 26.1 Canadian % (Auto) 9.8 Eos % (Auto) 1.1 Baso % (Auto) 0.8 Lymph # (Auto) 1.7 Canadian # (Auto) 0.6 Eos # (Auto) 0.1 Baso # (Auto) 0.1 Abs Immat Gran (auto) 0.02 Absolute Neuts (auto) 4.1 Absolute Nucleated RBC 0.000 Nucleated RBC % (auto) 0.0 Sodium 144 Potassium 4.1 Chloride 109 H Carbon Dioxide 30 H Anion Gap 9 L BUN 17 H Creatinine 0.69 Estim Creat Clear Calc 69.0 Estimated GFR > 60 Random Glucose 87 Estimat Average Glucose Hemoglobin A1c % Calcium 9.6 Magnesium Total Bilirubin 0.6 AST 17 ALT 20 Alkaline Phosphatase 81 Total Protein 7.0 Albumin 4.3 Triglycerides Cholesterol LDL Cholesterol, Calc HDL Cholesterol Vitamin B12 Folate TSH Free T4 Urine Color Yellow Urine Appearance Clear Urine pH 7.5 Ur Specific [place] 1.020 Urine Protein Negative Urine Glucose (UA) Negative Urine Ketones Negative Urine Blood Negative Urine Nitrite Negative Ur Leukocyte Esterase Negative Salicylates < 5.0 L Urine Opiates Screen Urine Fentanyl Screen Acetaminophen < 17 Ur Barbiturates Screen Ur Phencyclidine Scrn Ur Amphetamines Screen U Benzodiazepines Scrn Urine Cocaine Screen U Marijuana (THC) Screen Ethyl Alcohol < 10 COVID-19 ([facility]HA) COVID-19 [employer] 06/20/22 06/21/22 06/22/22 10:18 08:31 07:23 WBC RBC Hgb Hct MCV MCH MCHC RDW Plt Count MPV Immature Gran % (Auto) Neut % (Auto) Lymph % (Auto) [place] % (Auto) Eos % (Auto) Baso % (Auto) Lymph # (Auto) [place] # (Auto) Eos # (Auto) Baso # (Auto) Abs Immat Gran (auto) Absolute Neuts (auto) Absolute Nucleated RBC Nucleated RBC % (auto) Sodium Potassium Chloride Carbon Dioxide Anion Gap BUN Creatinine Estim Creat Clear Calc Estimated GFR Random Glucose Estimat Average Glucose 91 Hemoglobin A1c % 4.8 Calcium Magnesium Total Bilirubin AST ALT Alkaline Phosphatase Total Protein Albumin Triglycerides Cholesterol LDL Cholesterol, Calc HDL Cholesterol Vitamin B12 Folate TSH Free T4 Urine Color Urine Appearance Urine pH Ur Specific [place] Urine Protein Urine Glucose (UA) Urine Ketones Urine Blood Urine Nitrite Ur Leukocyte Esterase Salicylates Urine Opiates Screen Not Detected Urine Fentanyl Screen Not Detected Acetaminophen Ur Barbiturates Screen Not Detected Ur Phencyclidine Scrn Not Detected Ur Amphetamines Screen Not Detected U Benzodiazepines Scrn Not Detected Urine Cocaine Screen Not Detected U Marijuana (THC) Screen Not Detected Ethyl Alcohol COVID-19 ([facility]) Negative COVID-19 [employer] See Note 06/22/22 07:23 WBC RBC Hgb Hct MCV MCH MCHC RDW Plt Count MPV Immature Gran % (Auto) Neut % (Auto) Lymph % (Auto) [place] % (Auto) Eos % (Auto) Baso % (Auto) Lymph # (Auto) [place] # (Auto) Eos # (Auto) Baso # (Auto) Abs Immat Gran (auto) Absolute Neuts (auto) Absolute Nucleated RBC Nucleated RBC % (auto) Sodium Potassium Chloride Carbon Dioxide Anion Gap BUN Creatinine Estim Creat Clear Calc Estimated GFR Random Glucose Estimat Average Glucose Hemoglobin A1c % Calcium Magnesium 2.1 Total Bilirubin AST ALT Alkaline Phosphatase Total Protein Albumin Triglycerides 104 Cholesterol 181 LDL Cholesterol, Calc 117 HDL Cholesterol 44 Vitamin B12 300 Folate 9.8 TSH 1.29 Free T4 0.84 Urine Color Urine Appearance Urine pH Ur Specific [place] Urine Protein Urine Glucose (UA) Urine Ketones Urine Blood Urine Nitrite Ur Leukocyte Esterase Salicylates Urine Opiates Screen Urine Fentanyl Screen Acetaminophen Ur Barbiturates Screen Ur Phencyclidine Scrn Ur Amphetamines Screen U Benzodiazepines Scrn Urine Cocaine Screen U Marijuana (THC) Screen Ethyl Alcohol COVID-19 ([facility]) COVID-19 Clin Com Imaging Diagnostic Imaging Impressions Head CT 06/20/22 09:02 IMPRESSION: No acute intracranial pathology. DS: Summary Hospital Course Hospital Course: Pt is a 67 yo female with hx of psychotic illness and chronic paranoid delusions, AH who self-presents asking for transportation/housing in face of not on medications and homelessness having traveled from [place] to [place]. -patient meets criteria for schizophrenia as she has chronic paranoid delusions and auditory hallucinations -that said she has survived on her own without any medications and if her history giving is reliable, with almost no psychiatric hospitalizations -despite paranoid delusions, patient describes how she survives living on the streets and is clearly capable, figuring out whom to trust and ask questions, whom to avoid, how to get food, water and intermittent fci. -patient has no insight at all and does not want medications, though she did not fully rule it out.? She has no support and there does not appear to be anyone from home to get collateral. -will admit for observation however so far it seems that patient is able to take care of herself in the community despite her psychotic illness 5/3Patient remains with same presentation.? She remains with paranoid delusions however she is also logical, organized in speech and behavior.? Cutting Room Supervisor again broached the topic of medications, saying that things might be easier for her if she was willing to try medication however patient reiterates she does not want medications and does not feel the need for them.? Cutting Room Supervisor again broached homelessness and patient again explained how she manages it, again revealing that she is quite savvy, organized; she understands the risks and dangers and appropriately describes how she navigates them.? Patient asks for help knowing the system of shelters and what is available for her.? Patient reiterates this is why she came to the hospital, for help with housing and she does not want to go back to [place].? Otherwise she continues to deny any psychiatric symptoms and agrees with plan for discharge. While patient presents with psychotic illness and gives a history indicating chronic schizophrenia, she does not meet criteria for involuntary commitment.? Despite delusions, she is organized in behavior and speech and has demonstrated good behavioral and impulse control since coming to the hospital.? Cutting Room Supervisor cannot testify that she is unable to care for herself in the community as she has been doing that very thing, on her own, without medication, without help and without any resulting psychiatric admissions.? Even this admission was a self presentation, patient looking for help with housing.? Patient denies any SI or HI and has no known history of unsafe behaviors to which remote mortgage underwriter can ascertain.? Patient is homeless by choice and does not want to go back to [place].? As mentioned above, she has been able to navigate homelessness and approaches it in an organized and logical way (patient told how she wanted to buy something with food stamps but was not allowed; so instead, she brought water bottles, emptied the water, got the recycling money and then purchased what she wanted in the 1st place).? Patient does not want any psychiatric treatment and is only asking for help with housing; she is not even asking to stay longer on the unit.?On day of discharge, pt in good mood, friendly and optimistic; pt thankful for cloths/shoes from [employer].? Patient is not in imminent risk for harm to self or others and her request for discharge honored. Time spent discussing smoking cessation with patient: 3 to 10 minutes Status at Discharge Functional status at discharge: independent ambulation Overall status at discharge: patient is back to baseline Time Spent with Patient Time attestation: Total time managing care of this patient today ____ minutes. Discharge Plan Discharge Anticipated Discharge Date/Time: 06/23/22 11:30 Patient Disposition: [facility] Discharge Diagnosis: Schizophrenia Referrals: [facility] [Other] - 1 Day [facility] [Other] - 1 Day Physician,None [Primary Care Provider] - 1 Week Discharge Medications: No Action No Known Home Meds Discharge Orders: Discharge Order (Routine); Ordered 06/24/22 Ordered By: Frederick Andrews Diet: Regular diet Activity on Discharge: As tolerated Stand Alone Forms: Patient Portal Discharge page Care Plan Goals: Maintain mood and safe behaviors Practice coping skills Health Concerns: Mood stability Plan of Treatment: Consider working with a PCP, psychiatric provider and other outpatient providers Assessment: Risk assessment at time of discharge:? Patient was interviewed prior to discharge and found to be fully oriented and without any SI or HI. Patient is not in imminent risk of harm to self or others and would present to the closest ER or calling 911 if feeling unsafe.? Patient has been observed closely by nursing and unit staff throughout admission; patient has not engaged in any behaviors that suggest dangerousness to self or others and has demonstrated appropriate behaviors and impulse control
[2022-06-23 18:00] VITALS: BP 152/68; PULSE 93; TEMP 36; O2SAT 98
== END 2022-06-24 11:09 | disposition home or self-care (01) | DRG 750 ==
LOC: HO.ED 13:23 → HO.PM5 06-21 17:17
PROVIDERS: Physician Assistant; Physician Assistant Medical; Admitting Provider Clinical Nurse Specialist Psychiatric/Mental Health, Adult; Emergency Provider Emergency Medicine; Visit Provider Psychiatry & Neurology Psychiatry
DX: F20.9 Schizophrenia, unspecified (principal); Z59.02 Unsheltered homelessness; Z20.822 Contact with and (suspected) exposure to COVID-19
CPT/HCPCS: 36415; 70450; 80053; 80061; 80143; 80179; 80307; 81003; 82077; 82607; 82746; 83036; 83735; 84439; 84443; 85025; 87635; 93005; 99285; S9485